=== PATIENT | female | born 1990 | race Caucasian/White ===

== ENCOUNTER 2019-09-04 23:40 | Emergency (ER) | payer SELFPAY ==
[~2019-09-04] VITALS: Ht 170.2 cm; Wt 59.0 kg
[2019-09-04 23:55] VITALS: BP 145/70
== END 2019-09-05 02:11 | disposition left against medical advice (07) ==
LOC: ER 23:40
DX: N75.1 Abscess of Bartholin's gland (principal); Z53.21 Procedure and treatment not carried out due to patient leaving prior to being seen by health care provider